=== PATIENT | male | born 1930 | race Caucasian/White ===

== ENCOUNTER 2017-08-02 07:38 | Emergency (ER) | payer MEDICARE, OTHER ==
[~2017-08-02] VITALS: Ht 188 cm; Wt 94.0 kg
[~2017-08-02 07:38] MED LIST: ALBU8.5H8 IH; ASPI-611 PO; ATOR80TA PO; CARV3.122 PO; DABI150C PO; LOSA1TAB41 PO; POTA10TA36 PO; VIT1CAPS PO; VITC500T PO; ZOLP5TAB8 PO
[2017-08-02 08:18] LABS: BASOPHILS % (AUTO) 0.2 % (0-1); EOSINOPHILS # (AUTO) 0.2 X10'3 (0-0.9); EOSINOPHILS % (AUTO) 2.7 % (0-6); HEMATOCRIT 40.8 % (42.0-52.0); HEMOGLOBIN 13.9 g/dl (14.0-17.9); LYMPHOCYTES % (AUTO) 11.2 % (21-51); MEAN CORPUSCULAR HEMOGLOBIN 31.4 PG (27.0-31.0); MEAN CORPUSCULAR HGB CONC 33.9 % (33.0-36.5); MEAN CORPUSCULAR VOLUME 92.4 FL (78-98); MEAN PLATELET VOLUME 7.8 FL (7.4-10.4); MONOCYTES # (AUTO) 0.6 X10'3 (0-0.9); MONOCYTES % (AUTO) 6.3 % (2-12); NEUTROPHILS # (AUTO) 7.1 X10'3 (1.8-7.7); NEUTROPHILS % (AUTO) 79.6 % (42-75); PLATELET COUNT 225 X10'3 (140-440); RED BLOOD COUNT 4.42 X10'6 (4.70-6.10); RED CELL DISTRIBUTION WIDTH 12.9 % (11.5-14.5); WHITE BLOOD COUNT 8.9 X10'3 (4.5-11.0)
[2017-08-02 08:32] LABS: ALANINE AMINOTRANSFERASE 24 U/L (12-78); ALBUMIN 3.6 G/DL (3.4-5.0); ALKALINE PHOSPHATASE 167 IU/L (46-116); ANION GAP 7 (8-16); ASPARTATE AMINO TRANSFERASE 18 U/L (10-37); BILIRUBIN,TOTAL 0.7 MG/DL (0.1-1.0); BLOOD UREA NITROGEN 35 MG/DL (7-18); BUN/CREATININE RATIO 27.6 (5.4-32.0); CALCIUM 9.5 MG/DL (8.5-10.1); CHLORIDE 111 MMOL/L (99-107); CREATININE 1.27 MG/DL (0.60-1.10); GLUCOSE 107 MG/DL (70-104); POTASSIUM 4.6 MMOL/L (3.5-5.1); SODIUM 143 MMOL/L (135-145); TOTAL CARBON DIOXIDE 24.9 MMOL/L (24-32); TOTAL PROTEIN 7.1 G/DL (6.4-8.2); eGFR 54 ML/MIN
[2017-08-02 08:56] VITALS: BP 144/62
== END 2017-08-02 08:58 | disposition home or self-care (01) ==
LOC: ER 07:40
DX: S16.1XXA Strain of muscle, fascia and tendon at neck level, initial encounter (principal); I10 Essential (primary) hypertension; I48.91 Unspecified atrial fibrillation; I25.10 Atherosclerotic heart disease of native coronary artery without angina pectoris; K21.9 Gastro-esophageal reflux disease without esophagitis; E78.00 Pure hypercholesterolemia, unspecified; Z95.0 Presence of cardiac pacemaker; Z95.1 Presence of aortocoronary bypass graft; Z98.890 Other specified postprocedural states; Z79.82 Long term (current) use of aspirin; Z88.0 Allergy status to penicillin; X58.XXXA Exposure to other specified factors, initial encounter; Y93.89 Activity, other specified; Y92.89 Other specified places as the place of occurrence of the external cause; Y99.8 Other external cause status
CPT/HCPCS: 36415; 80053; 84484; 85025; 85651; 99284

== ENCOUNTER 2017-10-07 14:00 | Day surgery (SDC) | payer MEDICARE, OTHER ==
[2017-10-03 09:51] LABS: BASOPHILS # (AUTO) 0.1 X10'3 (0-0.2); BASOPHILS % (AUTO) 1.1 % (0-1); EOSINOPHILS # (AUTO) 0.2 X10'3 (0-0.9); EOSINOPHILS % (AUTO) 3.5 % (0-6); HEMATOCRIT 41.5 % (42.0-52.0); HEMOGLOBIN 14.4 g/dl (14.0-17.9); LYMPHOCYTES % (AUTO) 14.5 % (21-51); MEAN CORPUSCULAR HEMOGLOBIN 31.9 PG (27.0-31.0); MEAN CORPUSCULAR HGB CONC 34.8 % (33.0-36.5); MEAN CORPUSCULAR VOLUME 91.7 FL (78-98); MEAN PLATELET VOLUME 8.6 FL (7.4-10.4); MONOCYTES # (AUTO) 0.5 X10'3 (0-0.9); MONOCYTES % (AUTO) 7.4 % (2-12); NEUTROPHILS % (AUTO) 73.5 % (42-75); PLATELET COUNT 207 X10'3 (140-440); RED BLOOD COUNT 4.52 X10'6 (4.70-6.10); RED CELL DISTRIBUTION WIDTH 13.4 % (11.5-14.5); WHITE BLOOD COUNT 6.7 X10'3 (4.5-11.0)
[2017-10-03 09:52] LABS: ALBUMIN 3.9 G/DL (3.4-5.0); ANION GAP 6 (8-16); BLOOD UREA NITROGEN 31 MG/DL (7-18); BUN/CREATININE RATIO 24.6 (5.4-32.0); CALCIUM 9.4 MG/DL (8.5-10.1); CHLORIDE 108 MMOL/L (99-107); CREATININE 1.26 MG/DL (0.60-1.10); GLUCOSE 103 MG/DL (70-104); INR 1.1 INR; PARTIAL THROMBOPLASTIN TIME 30 SECONDS (22-32); POTASSIUM 4.7 MMOL/L (3.5-5.1); PROTHROMBIN TIME 11.6 SECONDS (9.0-12.0); SODIUM 142 MMOL/L (135-145); TOTAL CARBON DIOXIDE 27.6 MMOL/L (24-32); eGFR 54 ML/MIN
[~2017-10-07] VITALS: Ht 188 cm; Wt 99.9 kg
[2017-10-07] VITALS (7 sets, daily range): BP systolic 136–164; BP diastolic 67–93
[2017-10-07] MEDS ORDERED: LORazepam 0.5 MG tablet PO PRN (14:25)
[2017-10-07] MEDS ORDERED: diphenhydrAMINE 25mg capsule PO PRN (14:25)
[2017-10-07] MEDS ORDERED: normal saline 1000ml 1,000 ML IV SCH (14:25)
[2017-10-07] MEDS ORDERED: LOSA25TA96 PO (15:16)
[2017-10-07] MEDS ORDERED: iohexol 350MG/ML 100ml bottle IV ONE (17:51)
[2017-10-07] MEDS ORDERED: LIDOcaine 1% 30ml vial 30 ML ONE (17:51)
[2017-10-07] MEDS ORDERED: midazolam 2 mg/2 ml injection ONE (18:18)
[2017-10-07] MEDS ORDERED: fentaNYL/PF 50MCG/1 ML 2ML syringe ONE (18:18)
[2017-10-07] MEDS ORDERED: iohexol 350 MG/ML 50ML vial IV ONE ×2 (18:37→18:43)
[2017-10-07] MEDS ORDERED: normal saline 1000ml 1,000 ML IV ONE (19:30)
[2017-10-07] MEDS ORDERED: HYDROcodone/acetaminophen 5mg/325mg tablet PO PRN (19:30)
[2017-10-07] MEDS ORDERED: proCHLORperazine 10 MG/2 ml inj IV PRN (19:30)
[2017-10-07] MEDS ORDERED: ondansetron/PF 4mg/2ml inj IV PRN (19:30)
[2017-10-07] MEDS ORDERED: HYDROcodone/acetaminophen 10/325mg tab PO PRN (19:30)
[2017-10-07] MEDS ORDERED: OXAZEpam 15mg capsule PO PRN (19:30)
== END 2017-10-07 20:55 | disposition home or self-care (01) ==
LOC: SSTAY O 14:00
PROVIDERS: ATTEND Internal Medicine Interventional Cardiology
DX: I25.10 Atherosclerotic heart disease of native coronary artery without angina pectoris (principal); R94.39 Abnormal result of other cardiovascular function study; Z79.01 Long term (current) use of anticoagulants; Z88.0 Allergy status to penicillin; K21.9 Gastro-esophageal reflux disease without esophagitis; Z79.82 Long term (current) use of aspirin; Z95.1 Presence of aortocoronary bypass graft; E78.00 Pure hypercholesterolemia, unspecified; I48.91 Unspecified atrial fibrillation; Z79.899 Other long term (current) drug therapy; I13.0 Hypertensive heart and chronic kidney disease with heart failure and stage 1 through stage 4 chronic kidney disease, or unspecified chronic kidney disease; N18.9 Chronic kidney disease, unspecified; I50.9 Heart failure, unspecified
CPT/HCPCS: 36415; 80048; 85025; 85610; 85730; 93005; 93459; A6257; C1769; J1644; J2250; J3010; J3490; J7030; Q0163; Q9967; A4620

== ENCOUNTER 2018-09-09 02:33 | Inpatient (IN) | payer MEDICARE, OTHER | END 2018-09-10 15:15 | disposition home or self-care (01) | LOC: ER 02:33 → ED HOLD 04:26 → SUR 3N 05:50 | DX: I50.9 Heart failure, unspecified (principal); N17.9 Acute kidney failure, unspecified ==

== ENCOUNTER 2019-05-24 07:42 | Emergency (ER) | payer MEDICARE, OTHER ==
[~2019-05-24] VITALS: Ht 188 cm; Wt 95.0 kg
[~2019-05-24 07:42] MED LIST changes: -ALBU8.5H8 IH; -ASPI-611 PO; -ATOR80TA PO; -DABI150C PO; +DABI75CA3 PO; +FURO-150 PO; -LOSA1TAB41 PO; +LOSA25TA41 PO; +MAGN400C PO; -POTA10TA36 PO; +POTA20TA10 PO; +ROSU20TA31 PO
[2019-05-24] MEDS ORDERED: LIDOcaine 5% patch TP STA (08:57)
[2019-05-24] MEDS ORDERED: HYDR-4383 PO (09:30)
[2019-05-24] MEDS ORDERED: GABA-532 PO (09:30)
[2019-05-24 10:12] VITALS: BP 145/72
== END 2019-05-24 10:18 | disposition home or self-care (01) ==
LOC: ER 07:43
DX: S29.012A Strain of muscle and tendon of back wall of thorax, initial encounter (principal); S39.012A Strain of muscle, fascia and tendon of lower back, initial encounter; E78.00 Pure hypercholesterolemia, unspecified; I25.10 Atherosclerotic heart disease of native coronary artery without angina pectoris; I48.91 Unspecified atrial fibrillation; I10 Essential (primary) hypertension; K21.9 Gastro-esophageal reflux disease without esophagitis; Z98.890 Other specified postprocedural states; Z95.0 Presence of cardiac pacemaker; Z95.1 Presence of aortocoronary bypass graft; Z88.0 Allergy status to penicillin; Z79.899 Other long term (current) drug therapy; X58.XXXA Exposure to other specified factors, initial encounter; Y93.53 Activity, golf; Y92.89 Other specified places as the place of occurrence of the external cause; Y99.8 Other external cause status
CPT/HCPCS: 72070; 72100; 99284